=== PATIENT | female | born 1995 | race Caucasian/White ===

== ENCOUNTER 2016-12-11 07:50 | Emergency (ER) | payer OTHER ==
[2016-12-11 09:15] LABS: HEMOGLOBIN 13.7 gm/dl (12.3-15.3); RED BLOOD COUNT 4.95 M/UL (4.00-5.10); WHITE BLOOD COUNT 5.5 K/UL (4.5-11.0)
[2016-12-11 09:45] LABS: BUN/CREATININE RATIO 20 (0-10)
== END 2016-12-11 10:27 | disposition home or self-care (01) ==
LOC: ER1 07:50
PROVIDERS: Emergency Medicine
DX: J40 Bronchitis, not specified as acute or chronic (principal); N39.0 Urinary tract infection, site not specified
CPT/HCPCS: 36415; 71020; 80053; 81001; 82550; 82553; 83874; 84484; 84703; 85025; 85379; 87086; 93005; 99284

== ENCOUNTER → 2017-02-03 | Outpatient (CLI) | payer OTHER | LOC: LAB 11:21 | DX: Z02.1 Encounter for pre-employment examination (principal) | CPT/HCPCS: 86706; 86735; 86762; 86765; 86787 ==

== ENCOUNTER 2020-09-24 08:39 | Emergency (ER) | payer OTHER ==
[~2020-09-24 08:39] MED LIST: ZOFRAN ODT 4 MG4 MG GT
[2020-09-24 11:09] LABS: HEMOGLOBIN 14.7 gm/dl (12.3-15.3); RED BLOOD COUNT 5.39 M/UL (4.00-5.10); WHITE BLOOD COUNT 5.6 K/UL (4.5-11.0)
[2020-09-24 11:30] LABS: BUN/CREATININE RATIO 13 (0-10)
[2020-09-24] MEDS ORDERED: NAPROSYN500 MG PO (12:48)
== END 2020-09-24 13:30 | disposition home or self-care (01) ==
LOC: ER1 08:39
PROVIDERS: Physician Assistant
DX: L02.416 Cutaneous abscess of left lower limb (principal)
CPT/HCPCS: 10060; 36415; 80048; 85025; 87070; 87077; 87186; 87205; 96374; 99283; J3370

== ENCOUNTER 2021-03-19 08:59 | Emergency (ER) | payer OTHER ==
[~2021-03-19 08:59] MED LIST changes: +NAPROSYN500 MG PO
== END 2021-03-19 11:25 | disposition home or self-care (01) ==
LOC: ER1 08:59
DX: U07.1 COVID-19 (principal); Z90.49 Acquired absence of other specified parts of digestive tract
CPT/HCPCS: 99283; U0002